=== PATIENT | male | born 1970 | race Native Hawaiian/Other Pacific Islander ===

== ENCOUNTER 2017-03-28 13:43 | Emergency (ER) | payer OTHER ==
[~2017-03-28] VITALS: Ht 180.3 cm; Wt 89.4 kg
[~2017-03-28 13:43] MED LIST: ASPI325T40 PO; CLOP75TA2 PO; LISI20TA11 PO; METOPROLOL25 M1 PO
[2017-03-28 13:48] VITALS: TEMP 97.8
[2017-03-28 16:19] VITALS: BP 148/82
== END 2017-03-28 16:20 | disposition home or self-care (01) ==
LOC: ED 13:43
DX: S62.631A Displaced fracture of distal phalanx of left index finger, initial encounter for closed fracture (principal); S61.211A Laceration without foreign body of left index finger without damage to nail, initial encounter; W45.8XXA Other foreign body or object entering through skin, initial encounter; W22.8XXA Striking against or struck by other objects, initial encounter; Y92.098 Other place in other non-institutional residence as the place of occurrence of the external cause
CPT/HCPCS: 90715; 96372; 96374; 96375; 99284; J1170; J1885; J2405

== ENCOUNTER 2017-04-01 13:44 | Emergency (ER) | payer OTHER ==
[~2017-04-01] VITALS: Ht 177.8 cm; Wt 89.4 kg
[2017-04-01 13:52] VITALS: BP 133/90; TEMP 98.3
[2017-04-01] MEDS ORDERED: ASPIR-8181 MG OR (14:02)
== END 2017-04-01 15:08 | disposition left against medical advice (07) ==
LOC: ED 13:44
DX: R07.89 Other chest pain (principal)
CPT/HCPCS: 99281

== ENCOUNTER 2017-05-25 13:34 | Outpatient (CLI) | payer OTHER ==
[~2017-05-25 13:34] MED LIST changes: +ASPIR-8181 MG OR
== END 2017-05-25 15:00 | disposition home or self-care (01) ==
LOC: US 13:34
DX: I73.89 Other specified peripheral vascular diseases (principal)

== ENCOUNTER 2017-08-21 08:03 | Outpatient (CLI) | payer OTHER ==
[2017-08-21 15:02] LABS: PLATELET COUNT 258 K/uL (142-355)
[2017-08-21 15:18] LABS: POTASSIUM 4.1 mmol/L (3.6-5.2); SODIUM 137 mmol/L (136-145)
== END 2017-08-21 19:00 | disposition home or self-care (01) ==
LOC: LAB 08:03 → RAD 08:03
PROVIDERS: Nurse Practitioner Family
DX: B37.0 Candidal stomatitis (principal); J44.9 Chronic obstructive pulmonary disease, unspecified; Z91.19 Patient's noncompliance with other medical treatment and regimen; I25.10 Atherosclerotic heart disease of native coronary artery without angina pectoris; Z79.899 Other long term (current) drug therapy; Z51.81 Encounter for therapeutic drug level monitoring; E78.4 Other hyperlipidemia; R53.83 Other fatigue; R53.81 Other malaise
CPT/HCPCS: 80053; 80061; 83036; 84154; 84436; 84443; 85027

== ENCOUNTER 2017-10-03 13:06 | Emergency (ER) | payer OTHER ==
[~2017-10-03] VITALS: Ht 177.8 cm; Wt 89.8 kg
[2017-10-03 13:10] VITALS: TEMP 97.9
[2017-10-03] MEDS ORDERED: LIPITOR10 MG PO (13:31)
[2017-10-03] MEDS ORDERED: CLOP75TA2 PO (13:31)
[2017-10-03] MEDS ORDERED: ADLT ASA LOW81 MG OR (13:32)
[2017-10-03] MEDS ORDERED: TRICOR48 MG PO (13:32)
[2017-10-03 13:42] LABS: PLATELET COUNT 272 K/uL (142-355)
[2017-10-03 13:49] LABS: POTASSIUM 3.5 mmol/L (3.6-5.2)
[2017-10-03 14:01] LABS: SODIUM 139 mmol/L (136-145)
[2017-10-03 16:15] VITALS: BP 129/76
== END 2017-10-03 16:50 | disposition home or self-care (01) ==
LOC: ED 13:06
PROVIDERS: Family Medicine
DX: R07.89 Other chest pain (principal)
CPT/HCPCS: 36415; 80053; 82550; 84484; 85027; 93005; 99284

== ENCOUNTER 2017-11-30 08:39 | Outpatient (CLI) | payer OTHER ==
[~2017-11-30 08:39] MED LIST changes: +ADLT ASA LOW81 MG OR; +LIPITOR10 MG PO; +TRICOR48 MG PO
== END 2017-11-30 21:04 | disposition home or self-care (01) ==
LOC: US 08:39
DX: R10.13 Epigastric pain (principal)